=== PATIENT | female | born 1955 | race Caucasian/White ===

== ENCOUNTER 2018-08-05 18:50 | Emergency (ER) | payer BC ==
--- NOTE | 2018-08-05 18:59 | ER Report ---
History and Physical Time Seen By MD: 18:59 HPI/ROS CHIEF COMPLAINT: Chest pain HISTORY OF PRESENT ILLNESS: 62-year-old female visiting from was constant. She is here visiting her son. She's been hiking and elevation. She developed some chest pain with extreme exertion at 10,000 feet today. She did stop and rest. The chest pain continued and persisted. She comes to the emergency room for evaluation. She normally is in quite good shape and works out at lower elevation without difficulty. She denies recent URI cough sore throat fever or chills. Patient lies leg swelling or calf pain REVIEW OF SYSTEMS: Respiratory: No cough, no dyspnea. Cardiovascular: As above Gastrointestinal: No vomiting, no abdominal pain. Musculoskeletal: No back pain. Allergies: Coded Allergies: cefuroxime (Verified Allergy, Severe, 08/05/18) Sulfa (Sulfonamide Antibiotics) (Verified Allergy, Intermediate, 08/05/18) acetaminophen (Verified Allergy, Intermediate, AGITATED , 08/05/18) hydrocodone (Verified Allergy, Intermediate, AGITATED , 08/05/18) prochlorperazine (Verified Allergy, Intermediate, 08/05/18) Home Meds Active Scripts Metoprolol Succinate (METOPROLOL SUCCINATE) 25 Mg Tab.er.24h, 1 TAB PO QDAY for cardiac protection, #30 TAB Prov:ROSANNA CASTELLANO DO 08/06/18 Reviewed Nurses Notes: Yes Old Medical Records Reviewed: Yes Constitutional Vital Sign - Last 24 Hours 08/05/18 08/05/18 08/05/18 08/05/18 18:56 18:56 19:02 19:05 Temp 98.8 Pulse 102 118 Resp 11 B/P (MAP) 194/106 (135) 194/106 174/110 (131) Pulse Ox 98 96 O2 Delivery Room Air 08/05/18 08/05/18 08/05/18 08/05/18 19:20 19:25 19:30 19:35 Pulse 97 93 Resp 12 9 B/P (MAP) 172/105 (127) 133/104 (114) Pulse Ox 95 91 08/05/18 08/05/18 08/05/18 08/05/18 19:45 19:50 20:03 20:05 Pulse 83 90 Resp 10 24 B/P (MAP) 145/89 (107) 174/105 (128) Pulse Ox 97 97 08/05/18 08/05/18 08/05/18 08/05/18 20:10 20:15 20:30 20:40 Pulse 90 86 Resp 31 7 B/P (MAP) 149/114 (126) 164/94 (117) 172/101 (124) Pulse Ox 98 97 08/05/18 08/05/18 08/05/18 08/05/18 21:00 21:10 21:20 21:25 Pulse 89 86 Resp 23 13 B/P (MAP) 158/94 (115) 142/88 (106) Pulse Ox 92 92 08/05/18 08/05/18 08/05/18 08/05/18 21:40 21:55 22:00 22:20 Pulse 81 76 Resp 12 5 B/P (MAP) 147/98 (114) 140/81 (100) 127/87 (100) Pulse Ox 93 95 08/05/18 08/05/18 08/05/18 08/05/18 22:25 22:30 22:40 23:00 Pulse 86 78 80 Resp 14 12 12 B/P (MAP) 123/91 (102) 120/80 (93) Pulse Ox 92 91 92 08/05/18 08/05/18 08/05/18 08/05/18 23:20 23:30 23:40 23:40 Pulse 81 80 Resp 18 15 B/P (MAP) 117/72 (87) 136/71 (92) 136/71 (92) Pulse Ox 92 94 08/06/18 08/06/18 08/06/18 08/06/18 00:00 00:10 00:20 00:40 Pulse 83 86 Resp 11 9 B/P (MAP) 113/67 (82) 114/71 (85) 124/69 (87) Pulse Ox 91 92 08/06/18 08/06/18 08/06/18 01:00 01:10 01:20 Pulse 73 Resp 16 B/P (MAP) 124/80 (95) 129/80 (96) Pulse Ox 94 Physical Exam General Appearance: The patient is alert, has no immediate need for airway protection and no current signs of toxicity. Mild distress, Eyes: Pupils equal and round no injection. Respiratory: Chest is non tender, lungs are clear to auscultation. No chest wall tenderness Cardiac: regular rate and rhythm, no murmur Gastrointestinal: Abdomen is soft and non tender, no masses, bowel sounds normal. Musculoskeletal: Neck: Neck is supple and non tender. Extremities have full range of motion and are non tender. No edema, no calf tenderness Skin: No rashes or lesions. DIFFERENTIAL DIAGNOSIS: After history and physical exam differential diagnosis was considered for chest pain including but not limited to myocardial ischemia, pericarditis pulmonary embolus, chest wall pain, pleural inflammation and pulmonary infectious causes. Medical Decision Making Data Points Result Diagram: 08/05/18192608/05/181926 Laboratory Hematology Test 08/05/18 19:27 08/05/18 23:37 Red Blood Count 5.42 M/uL (4.17-5.56) Mean Corpuscular Volume 87.8 fL (80.0-96.0) Mean Corpuscular Hemoglobin 30.3 pg (26.0-33.0) Mean Corpuscular Hemoglobin Concent 34.5 g/dL (32.0-36.0) Red Cell Distribution Width 13.5 % (11.5-14.5) Mean Platelet Volume 7.2 fL (7.2-11.1) Neutrophils (%) (Auto) 59.8 % (39.4-72.5) Lymphocytes (%) (Auto) 31.5 % (17.6-49.6) Monocytes (%) (Auto) 7.4 % (4.1-12.4) Eosinophils (%) (Auto) 0.7 % (0.4-6.7) Basophils (%) (Auto) 0.6 % (0.3-1.4) Nucleated RBC Relative Count (auto) 0.1 /100WBC Neutrophils # (Auto) 4.1 K/uL (2.0-7.4) Lymphocytes # (Auto) 2.2 K/uL (1.3-3.6) Monocytes # (Auto) 0.5 K/uL (0.3-1.0) Eosinophils # (Auto) 0.0 K/uL (0.0-0.5) Basophils # (Auto) 0.0 K/uL (0.0-0.1) Nucleated RBC Absolute Count (auto) 0.01 K/uL Prothrombin Time 13.3 seconds (12.0-14.4) Prothromb Time International Ratio 1.01 Activated Partial Thromboplast Time 30 seconds (23-35) D-Dimer Quantitative (PE/DVT) 0.31 ug/ml (0-0.50) Sodium Level 143 mmol/L (137-145) Potassium Level 3.7 mmol/L (3.5-5.0) Chloride Level 103 mmol/L (98-107) Carbon Dioxide Level 29 mmol/L (22-31) Blood Urea Nitrogen 16 mg/dl (7-18) Creatinine 0.60 mg/dl (0.52-1.04) Glomerular Filtration Rate Calc > 60.0 Random Glucose 135 mg/dl (75-110) Calcium Level 9.6 mg/dl (8.4-10.2) Total Bilirubin 0.5 mg/dl (0.2-1.3) Aspartate Amino Transf (AST/SGOT) 35 U/L (0-35) Alanine Aminotransferase (ALT/SGPT) 31 U/L (0-56) Alkaline Phosphatase 118 U/L (0-126) B-Type Natriuretic Peptide 54 pg/ml (0-100) Total Protein 8.5 g/dl (6.3-8.2) Albumin 4.7 g/dl (3.5-5.0) Troponin I 0.039 ng/ml Chemistry Test 08/05/18 19:27 08/05/18 23:37 White Blood Count 6.9 k/uL (4.5-11.0) Red Blood Count 5.42 M/uL (4.17-5.56) Hemoglobin 16.4 g/dL (12.0-16.0) Hematocrit 47.6 % (34.0-47.0) Mean Corpuscular Volume 87.8 fL (80.0-96.0) Mean Corpuscular Hemoglobin 30.3 pg (26.0-33.0) Mean Corpuscular Hemoglobin Concent 34.5 g/dL (32.0-36.0) Red Cell Distribution Width 13.5 % (11.5-14.5) Platelet Count 274 K/uL (150-450) Mean Platelet Volume 7.2 fL (7.2-11.1) Neutrophils (%) (Auto) 59.8 % (39.4-72.5) Lymphocytes (%) (Auto) 31.5 % (17.6-49.6) Monocytes (%) (Auto) 7.4 % (4.1-12.4) Eosinophils (%) (Auto) 0.7 % (0.4-6.7) Basophils (%) (Auto) 0.6 % (0.3-1.4) Nucleated RBC Relative Count (auto) 0.1 /100WBC Neutrophils # (Auto) 4.1 K/uL (2.0-7.4) Lymphocytes # (Auto) 2.2 K/uL (1.3-3.6) Monocytes # (Auto) 0.5 K/uL (0.3-1.0) Eosinophils # (Auto) 0.0 K/uL (0.0-0.5) Basophils # (Auto) 0.0 K/uL (0.0-0.1) Nucleated RBC Absolute Count (auto) 0.01 K/uL Prothrombin Time 13.3 seconds (12.0-14.4) Prothromb Time International Ratio 1.01 Activated Partial Thromboplast Time 30 seconds (23-35) D-Dimer Quantitative (PE/DVT) 0.31 ug/ml (0-0.50) Glomerular Filtration Rate Calc > 60.0 Calcium Level 9.6 mg/dl (8.4-10.2) Total Bilirubin 0.5 mg/dl (0.2-1.3) Aspartate Amino Transf (AST/SGOT) 35 U/L (0-35) Alanine Aminotransferase (ALT/SGPT) 31 U/L (0-56) Alkaline Phosphatase 118 U/L (0-126) B-Type Natriuretic Peptide 54 pg/ml (0-100) Total Protein 8.5 g/dl (6.3-8.2) Albumin 4.7 g/dl (3.5-5.0) Troponin I 0.039 ng/ml Coagulation Test 08/05/18 19:27 Prothrombin Time 13.3 seconds Prothromb Time International Ratio 1.01 Activated Partial Thromboplast Time 30 seconds D-Dimer Quantitative (PE/DVT) 0.31 ug/ml EKG/Imaging EKG Interpretation 12 lead EK Rhythm: normal sinus rhythm [place]: normal QRS: normal ST segments: normal, diffuse nonspecific ST depression downsloping ST segment, no old EKGs for comparison 12 lead EKG: Rhythm: normal sinus rhythm [place]: normal QRS: normal ST segments: normal, there is some reduction of the ST depression that was nonspecific from the previous EKG 4 hours ago Imaging X-ray: Two-view chest x-ray was obtained. I viewed the images myself on the PACS system. My interpretation of the images is: No infiltrate, no effusion, normal mediastinum. The radiologist interpretation had no clinically significant variation from this interpretation. ED Course/Re-evaluation Clinical Indication for ER IV: IV Access ED Course Patient was admitted to an examination room. H&P was done. The differential d iagnoses was considered. Patient presents with significant chest pain with exertion at 10,000 feet. Her initial EKG shows no specific ischemic changes other than diffuse nonspecific ST depression of nonspecific on G. Her 1st troponin returns mildly elevated in the indeterminate zone at 0.052. She was treated with aspirin, nitroglycerin with improvement of her pain. Nitroglycerin paste is placed on her chest. She's given Zofran and morphine. Patient's troponin will be repeated in 4 hours. At 2330. The repeat troponin was done and her troponin had come down to 0.039. A repeat EKG shows normalization of the ST segments. I suspect the patient has some underlying minor coronary artery disease that was exacerbated by high altitude hiking and hypoxia with exertion. I do not think she needs to be admitted at this time. She is agreeable with the plan. She is a nurse practitioner. She'll be discharged on metoprolol 25 extended release mg by mouth daily. She is advised to take an aspirin daily. She's given nitroglycerin to take should she have any exacerbation of pain. She is advised to avoid exertion until she returns home to [place] and she needs to follow-up with a client support representative for further evaluation. Patient's advised if she has any pain is unrelieved with nitroglyc zachary last in excess of 30 minutes, she should report to the ER for reevaluation. Decision to Disposition Date: Aug 06, 2018 Decision to Disposition Time: 00:43 Depart Departure Latest Vital Signs Vital Signs Date Time Temp Pulse Resp B/P (MAP) Pulse Ox O2 Delivery O2 Flow Rate FiO2 08/06/18 01:20 129/80 (96) 08/06/18 01:10 73 16 94 08/05/18 18:56 98.8 Room Air Impression: Primary Impression: Chest pain Additional Impression: Elevated troponin Condition: Improved Disposition: HOME OR SELF-CARE New Scripts Metoprolol Succinate (METOPROLOL SUCCINATE) 25 Mg Tab.er.24h 1 TAB PO QDAY for cardiac protection, #30 TAB Prov: ROSANNA CASTELLANO DO 08/06/18 Patient Instructions: Chest Pain (ED) Additional Instructions: Take ibuprofen 200 mg 2-3 tablets 3 times a day with food for inflammatory pain relief Use nitroglycerin 0.4 mg sublingual every 5 minutes for chest pain, if unresolved go to the nearest ER if pain lasts in excess of 30 minutes Take at least one baby aspirin 81 mg per day Avoid any forms of excessive exertion Follow-up with your primary care. Upon returning home to [place] Problem Qualifiers Primary Impression: Chest pain Chest pain type: unspecified Qualified Codes: R07.9 - Chest pain, unspecified ROSANNA CASTELLANO DO Aug 05, 2018 18:59
[2018-08-05] MEDS ORDERED: ASPIRIN 81 MG CHEW PO ONE (19:05)
[2018-08-05] MEDS ORDERED: NITROGLYCERIN 0.4 MG SUBL SL SCH (19:05)
[2018-08-05] MEDS ORDERED: ONDANSETRON 4 MG/2 ML VIAL IVP ONE ×2 (19:05→20:15)
--- NOTE | 2018-08-05 19:19 | EKG ---
FACILITY: [facility] [place] PATIENT NAME: DONNIE QUIÑONES : [id number] MR: [id number] V: [id number] EXAM DATE: ORDERING PHYSICIAN: ROSANNA CASTELLANO TECHNOLOGIST: LAW Test Reason : CP Blood Pressure : / mmHG Vent. Rate : 106 BPM Atrial Rate : 106 BPM P-R Int : 122 ms QRS Dur : 074 ms QT Int : 340 ms P-R-T Axes : 065 023 040 degrees QTc Int : 451 ms Sinus tachycardia Possible Left atrial enlargement T inversion consistent with septal ischemia vs normal variant No previous ECGs available Confirmed by TIMOTEO GAINES ([id number]) on 08/05/2018 7:51:48 PM Referred By: Confirmed By:TIMOTEO GAINES
[2018-08-05 19:35] LABS: PLATELET COUNT, AUTOMATED 274 K/uL (150-450)
[2018-08-05 19:48] LABS: INR 1.01
[2018-08-05] MEDS ORDERED: NITROGLYCERIN OINT 1 GM PKT TP ONE ×2 (20:15→21:05)
[2018-08-05] MEDS ORDERED: MORPHINE 2 MG/ML SYR IVP ONE ×2 (20:15→21:05)
--- NOTE | 2018-08-05 20:15 | RADIOLOGY IMAGING REPORT ---
FACILITY: [facility] [place] PATIENT NAME: Gretchen Caro : 1955 MR: [id number] V: [id number] EXAM DATE: ORDERING PHYSICIAN: ROSANNA CASTELLANO TECHNOLOGIST: Location: [facility] Patient: Gretchen Caro : 1955 Visit/Account:[id number] Date of Sevice: 08/05/2018 Examination: CHEST PA AND LAT Comparison: None. History: Chest Pain Findings: Subtle nipple shadows project over both lower lungs. No consolidation or nodule is otherwi se identified. No pneumothorax, edema, or effusion. No definite evidence of acute peribronchial inf lammation. Cardiac and hilar contour size is within normal limits. Mild thoracic dextroscoliosis. IMPRESSION: No findings of acute cardiopulmonary disease. Report Dictated By: Edgar Flores MD at 08/05/2018 8:10 PM Report E-Signed By: Edgar Flores MD at 08/05/2018 8:11 PM WSN:[email or web address]
--- NOTE | 2018-08-06 00:18 | EKG ---
[place] [facility] [place] NAME: DONNIE QUIÑONES : [id number] MR: [id number] V: [id number] EXAM DATE: ORDERING PHYSICIAN: ROSANNA CASTELLANO TECHNOLOGIST: LAW Stroud Reason : REPEAT EKG Blood Pressure : / mmHG Vent. Rate : 078 BPM Atrial Rate : 078 BPM P-R Int : 120 ms QRS Dur : 080 ms QT Int : 396 ms P-R-T Axes : 066 039 042 degrees QTc Int : 451 ms Normal sinus rhythm T wave progression is consistent with an old ant/sep NE When compared with ECG of 05-AUG-2018 19:06, No significant change was found Confirmed by TIMOTEO GAINES ([id number]) on 08/06/2018 6:50:29 AM Referred By: Confirmed By:TIMOTEO GAINES
[2018-08-06] MEDS ORDERED: METOPROLOL SUCC XL 25 MG TABCR PO ONE (00:45)
[2018-08-06] MEDS ORDERED: NITROGLYCERIN 0.4 MG SUBL SL ONE (00:45)
[2018-08-06] MEDS ORDERED: METO25TA23 PO (00:50)
[2018-08-06 01:20] VITALS: BP 129/80
== END 2018-08-06 01:25 | disposition home or self-care (01) ==
LOC: ER 19:21
DX: R07.89 Other chest pain (principal); R79.89 Other specified abnormal findings of blood chemistry
CPT/HCPCS: 71046; 83880; 84484; 85025; 85379; 85610; 85730; 93005; 96374; 96375; 96376; 99284; J2270; J2405; 82040; 82247; 82310; 82374; 82435; 82565; 82947; 84075; 84132; 84155; 84295; 84450; 84460; 84520